=== PATIENT | female | born 1975 | race Caucasian/White ===

== ENCOUNTER → 2017-10-09 | Outpatient (CLI) | payer OTHER ==
[~2017-10-09] MED LIST: B-100 COMPLEX1 EAC1 PO; BACTRIM DS TAB1 EACH PO; GNP THERAPEUTI1 EACH PO; MEDROL DOSPAK21 TA1 PO; PERCOCET 5-3251 EACH PO; PRILOSEC 20 MG20 MG PO; TYLENOL W/CODEI1 TA2 PO; ZYRTEC10 M2 PO
[2017-10-09 21:11] LABS: TESTOSTERONE 4 ng/dL (8-48)
[2017-10-11 10:11] LABS: FREE TESTOSTERONE 0.8 pg/mL (0.0-4.2)
== END ==
LOC: M.LAB 07:51
PROVIDERS: Family Medicine
DX: R73.09 Other abnormal glucose (principal); R53.83 Other fatigue

== ENCOUNTER → 2017-12-19 | Outpatient (CLI) | payer OTHER ==
[2017-12-19 23:07] LABS: TESTOSTERONE 23 ng/dL (8-48)
== END ==
LOC: M.LAB 11:26
PROVIDERS: Family Medicine
DX: R53.83 Other fatigue (principal)